=== PATIENT | female | born 1940 | race Caucasian/White ===

== ENCOUNTER 2016-08-10 09:24 | Observation (INO) | payer MEDICARE ==
--- NOTE | ~2016-08-10 | EKG ---
PATIENT: MOISE BLANC UNIT #: [id number] Ventricular Rate: 62 BPM Atrial Rate: 62 BPM P-R Interval: 214 ms QRS Duration: 92 ms Q-T Interval: 384 ms QTC Calculation(Bezet): 389 ms Calculated R Walker: 12 degrees Calculated T Walker: 109 degrees Diagnosis Line: Atrial-paced rhythm with prolonged AV conduction Diagnosis Line: T wave abnormality, consider lateral ischemia Diagnosis Line: Abnormal ECG Diagnosis Line: No previous ECGs available Diagnosis Line: Confirmed by JENNIFER MOON MD ([id number]) on Diagnosis Line: 08/10/2016 11:02:34 PM INTERPRETING MD: RADHA
--- NOTE | ~2016-08-10 | CO ---
Unit #: [id number] #: [id number] Patient: MOISE BLANC [id number] [facility]. [place] [id number] [facility]. [place], [place] [address] [id number] I MR#: [id number] NAME: MOISE BLANC. ROOM: 306 Age: 76 Sex: F Admission Date: 08/10/2016 : 1940 Attending Physician: Derick Jules M.D. Primary Care Physician: Raoul Abbasi M.D. CONSULTATION REPORT HISTORY OF PRESENT ILLNESS This is a 76-year-old white female who is known to Dr. Mccain that has a history of sick sinus syndrome where she underwent permanent pacemaker placement in 2009. She had a cardiac catheterization in 2005 where she was found to have 30% stenosis to the ostial LAD. Lexiscan Cardiolite stress test in 2013 was normal. The patient presents to the emergency room with dizziness and chest pain. She went to bed feeling fine. However, she woke up during the night to go to the bathroom. She got so dizzy that she was unable to walk back to her bed. She complained of substernal chest pressure with heaviness that is nonradiating to the neck, arm or jaw. She called for her son to help her and she was assisted to the bed. Her chest pain resolved. She came into the emergency room for evaluation where initial enzymes were negative. Her electrocardiogram was noted to have Q waves with T wave inversion in the high lateral leads of I and AVL. No acute changes. Upon further questioning, the patient states she is not very active because she sleeps a lot. She is scheduled to have outpatient sleep study done because of her drowsiness. She complains of dyspnea when she goes up and down stairs. No chest pain. She has been told to have thyroid nodules in the past but has failed to follow up. She denies paroxysmal nocturnal dyspnea, orthopnea, syncope or near syncope. PAST MEDICAL HISTORY 1. 2D echocardiogram 06/29/2013 at [facility] with ejection fraction of 55% to 60%. There is mild mitral regurgitation and mild to moderate tricuspid regurgitation. Right ventricular systolic pressure 36 mmHg. 2. Lexiscan Cardiolite stress test 12/12/2013 at [facility] which shows ejection fraction equal to 89%. There is no ischemia or infarct. 3. Cardiac catheterization 10/12/2005 showed left main circumflex and right coronary arteries normal. LAD had 30% ostial stenosis. Ejection fraction of 50% to 55%. 4. Sick sinus syndrome, status post permanent pacemaker in 2009. No details available. 5. Hypotension. 6. Thyroid nodules. 7. Lifelong nonsmoker. PAST SURGICAL HISTORY 1. Cervical laminectomy. 2. Ankle surgery. Unit #: [id number] #: [id number] Patient: MOISE BLANC SOCIAL HISTORY The patient lives at home alone. She has no history of alcohol, tobacco or illicit drug use. FAMILY HISTORY Father in his 60s of complications from open heart surgery. Mother also had open heart surgery. Has a brother who has heart problems and a sister who had a permanent pacemaker. ALLERGIES Sulfa. HOME MEDICATIONS 1. Aspirin 81 mg daily. 2. Losartan 50 mg daily. 3. Hydrochlorothiazide 25 mg daily. 4. Hydroxyzine 25 mg p.r.n. 5. Paxil 20 mg daily. 6. Multivitamin, two tablets daily. 7. Hydrocodone/acetaminophen 5/325 q.6 hours p.r.n. 8. Nitrofurantoin 100 mg daily. REVIEW OF SYSTEMS CONSTITUTIONAL: Negative for fever or chills. Reports no weight gain or weight loss. Has weakness. HEENT: No headache, hearing or visual changes, difficulty with swallowing. Positive for dizziness. CARDIOVASCULAR: Has chest pressure described in the HPI. Denies palpitations. No paroxysmal nocturnal dyspnea or orthopnea. Denies syncope or near syncope. RESPIRATORY: Positive for dyspnea on exertion. Reports no cough or hemoptysis. GASTROINTESTINAL: No abdominal pain, nausea or vomiting. No constipation or melena. EXTREMITIES: Negative for lower extremity edema. PHYSICAL EXAMINATION VITAL SIGNS: Blood pressure 152/65, heart rate 71, temperature 98.3, BMI 31. GENERAL: This is a 76-year-old, elderly white female who is in no acute distress. NEUROLOGICAL: She is awake, alert and oriented without focal weaknesses. NECK: Trachea is midline. No thyromegaly or lymphadenopathy. No jugular venous distention. HEART: S1, S2 heart sounds are normal. No murmurs or rubs or clicks. Regular rate and rhythm. LUNGS: Diminished breath sounds. Poor inspiratory effort. No rales, rhonchi or wheezing. ABDOMEN: Soft, nontender. Bowel sounds are present. No hepatosplenomegaly. EXTREMITIES: Without leg edema. SKIN: Warm and dry. DIAGNOSTIC STUDIES LABORATORY: Glucose 129, BUN 24, creatinine 0.9, sodium 136, potassium 3.8, cholesterol 184, triglycerides 74, LDL 104, HDL 65, TSH 3.66. CK MB 2.1, troponin less than 0.05. White count 6.7, hemoglobin 12.8, Unit #: [id number] #: [id number] Patient: MOISE BLANC hematocrit 39.3, platelet count 215. IMAGING: CT of the head shows no acute findings. CARDIOVASCULAR: Electrocardiogram shows atrially paced rhythm with a rate of 62 beats per minute with Q waves noted in the high lateral leads and AVL with T wave inversion. IMPRESSION 1. Chest pain, rule out myocardial infarction. 2. Dizziness, questionable etiology. 3. Hypertension. 4. Sick sinus syndrome, status post permanent pacemaker. 5. Single vessel coronary artery disease with 30% ostial stenosis to the left anterior descending in 2005 cardiac catheterization. 6. Preserved left ventricular systolic function, ejection fraction 55% to 60%. PLAN 1. REPORT FAXED TO THE OFFICE OF BALDEMAR ALANIZ APRN ON 08/11/2016 FOR COMPLETION. cd Dictated by... Srini YooPTimothyRCarmen for Catrina Parra/laura TD: 08/11/2016 09:33 JOB #: [id number] CONSULTATION REPORT X Baldemar Alaniz APRN X CONSULTATION REPORT
--- NOTE | ~2016-08-10 | CT71 ---
[facility] A Service of [facility] RADIOLOGY TEXT RESULTS PATIENT: MOISE BLANC LOCATION: [facility] : 40 UNIT #: [id number] AGE: [address]: Hola Alvarado MD SEX: F ORDER DR: [id number] [facility] [address] [place], [place] [address] [id number] MR#: [id number] Acc #: [id number] NAME: MOISE BLANC. : 1940 SEX: F STUDY DATE/TIME: 08/10/2016 10:08 UNIT: [facility] ROOM: STUDY DESCRIPTION: CT Head Wo Contrast Attending Physician: Hola Alvarado M.D. Ordering Physician: Hola Alvarado M.D. Primary Care Physician: Raoul Haider MEDICAL IMAGING REPORT This report is preliminary unless electronic signature is present EXAM CT brain without contrast media HISTORY Dizziness since last night. TECHNIQUE Transaxial imaging of the brain was performed without contrast media. There are no prior studies for comparison. This CT exam was performed with one or more of the following radiation dose reduction techniques: automatic exposure control, adjustment of mA and/or kV according to patient size, and iterative reconstruction. FINDINGS Ventricular size and configuration is normal for this patient's age. No intra or extraaxial mass lesions, fluid collections or mass effect are seen. No focal areas of low attenuation or evidence of acute intracranial hemorrhage. There are atherosclerotic calcifications in the vertebral arteries and carotid siphons bilaterally. Bone windows are reviewed. The patient has relatively hypoplastic mastoid air cells. The remainder of the sinuses are clear. No fractures are identified. CONCLUSION 1. 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 2. No acute findings intracranially. Negative noncontrast CT of the brain. Dictated by... Jonatan Aecvedo M.D. THIS IS AN ELECTRONICALLY VERIFIED REPORT Jonatan Acevedo M.D. at 08/10/2016 12:57 PM [facility] A Service of [facility] RADIOLOGY TEXT RESULTS PATIENT: MOISE BLANC LOCATION: [facility] #: [id number] : 40 UNIT #: [id number] AGE: [address]: Hola Alvarado MD SEX: F ORDER DR: DC/yashira TD: 08/10/2016 11:42 JOB #: [id number] MEDICAL IMAGING REPORT COPY
--- NOTE | ~2016-08-10 | DS ---
Unit #: [id number] #: [id number] Patient: MOISE BLANC [id number] [address] [place], [place] [address] [id number] I MR#: [id number] NAME: MOISE BLANC. ROOM: 306 Age: 76 Sex: F Admission Date: 08/10/2016 : 1940 Discharge Date: 08/11/2016 Attending Physician: Derick Jules M.D. Primary Care Physician: Raoul Abbasi M.D. DISCHARGE SUMMARY ADMITTING DIAGNOSES 1. Dizziness. 2. History of sick sinus syndrome, status post pacemaker placement. 3. Hypertension. 4. History of degenerative joint disease. CONSULTANTS Dr. Morris. PROCEDURES PERFORMED None. HISTORY OF PRESENT ILLNESS The patient is a 76-year-old lady with a past medical history of sick sinus syndrome, status post pacemaker, hypertension and history of degenerative joint disease. The patient presented to the emergency room with a chief complaint of dizziness. HOSPITAL COURSE The patient was evaluated by cardiology. Her medications were reviewed and her hydrochlorothiazide was stopped. She did not have any further episodes of dizziness. She was complaining of tiredness and fatigue and her TSH was within normal limits. She is doing clinically better. Cardiology mentioned it is okay to discharge her. I spoke with the patient and she is agreeable to go home. She complains of having a history of thyroid nodules and said she follows up with her primary care physician. I am also giving her a number for the icu specialist, Dr. Persaud, here for followup for the thyroid nodules. PHYSICAL EXAMINATION VITALS: Temperature 97.9, pulse rate 62, respiratory rate 19, blood pressure 139/68. GENERAL: The patient is alert and oriented times three, lying in the bed in no acute distress. HEENT: Normocephalic, atraumatic. No icterus. Pupils equally round and reactive to light and accommodation. Extraocular muscles intact. NECK: Supple. No jugular venous distension. HEART: S1 and S2. Bradycardic. Pacemaker site nontender. CHEST: Bilaterally equal entry. Clear to auscultation. ABDOMEN: Soft and nontender. EXTREMITIES: No edema. Normal pulses. DISCHARGE MEDICATIONS She will continue with all her home medications except for Unit #: [id number] #: [id number] Patient: MOISE BLANC hydrochlorothiazide which is stopped. 1. Paxil 20 mg p.o. daily. 2. Vistaril 25 mg q.8 h. p.r.n. itching. 3. Losartan 50 mg p.o. daily. 4. Wright 3 fish oil capsule 1000 mg p.o. daily. 5. Multivitamin 1 tablet p.o. daily. 6. Aspirin 81 mg daily. 7. Hydrocodone/Tylenol 1 tablet q.6 h. p.r.n. pain. Kindly note we are not giving any prescription. She will be getting them from her primary care physician. 8. Nitrofurantoin 100 mg p.o. daily. FOLLOWUP She is instructed to follow up with her primary care physician in one to two weeks. All the discharge instructions were explained in detail to the patient. Time in her discharge 28 minutes. Dictated by... Catrina Lloyd TD: 08/12/2016 11:49 JOB #: [id number] DISCHARGE SUMMARY X X DISCHARGE SUMMARY
--- NOTE | ~2016-08-10 | HP ---
Unit #: [id number] #: [id number] Patient: MOISE BLANC [id number] [address] [address] [id number] E MR#: [id number] NAME: MOISE BLANC ROOM: Age: 76 Sex: F Admission Date: 08/10/2016 : 1940 Attending Physician: Hola Alvarado M.D. Primary Care Physician: Raoul Abbasi M.D. HISTORY AND PHYSICAL CHIEF COMPLAINT Dizziness. HISTORY OF PRESENT ILLNESS The patient is a 76-year-old female with history of sick sinus syndrome status post pacemaker placement, hypertension and history of degenerative joint disease, brought to the emergency room complaining of dizziness. The patient described the dizziness as the room spinning and is scared of getting up and walking. The patient stated the patient went to the bathroom and was not able to come back to the bed because of the dizziness. The patient also complains of chest pain associated with the dizziness and the chest pain lasted around 10 to 20 minutes. The patient denies any nausea, vomiting or palpitations. The patient denies any head trauma or recent fall. The patient follows with Cardiology outside and was scheduled to have echocardiogram today, however, presented to the emergency room with worsening dizziness. The patient denies any short of breath, headache, diarrhea or weakness. PAST MEDICAL HISTORY History of sick sinus syndrome, hypertension, history of degenerative joint disease. PAST SURGICAL HISTORY History of cervical laminectomy, left ankle surgery. SOCIAL HISTORY The patient denies smoking, drinking or illicit drug abuse. The patient is and lives with her . FAMILY HISTORY Positive for coronary artery disease. ALLERGIES Sulfa. HOME MEDICATION 1. Multivitamins. 2. Hydrocodone. 3. Nitrofurantoin. 4. Aspirin. 5. Losartan. 6. Hydrocholorothiazide. 7. Hydroxyzine. 8. Paroxetine. Unit #: [id number] #: [id number] Patient: MOISE BALNC REVIEW OF SYMPTOMS A 14-point review of systems was performed and only pertinent positive findings as described above. Remaining are negative. PHYSICAL EXAMINATION GENERAL APPEARANCE: The patient is lying on her bed, not in acute distress. VITAL SIGNS: Temperature 98.3. Pulse 62. Respiration 17. Blood pressure 119/64. Sating 97% on room air. HEENT: Head: Atraumatic, normocephalic. Pupils equal, round and reactive to light and accommodation. Extraocular movements are intact. Dry mucous membranes. NECK: Supple. No JVD. LUNGS: Decreased air entry at the bases. HEART: Regular rate and rhythm. ABDOMEN: Soft. Positive bowel sounds. EXTREMITIES: No cyanosis. No clubbing. NEUROLOGIC: No gross focal motor deficit. DIAGNOSTIC STUDIES LABORATORY: Glucose 129, BUN 34, creatinine 0.9, sodium 136, potassium 3.8, chloride 100, bicarb 26, calcium 9.3, total protein 6.8, total bilirubin 0.7, AST 27, ALT 19, alkaline phosphatase 110. Troponin is less than 0.05. WBC 6.7, hemoglobin 12.8, hematocrit 39.3, platelets 215. IMAGING: CT of the head shows atherosclerotic disease in the vertebral arteries and carotids. No acute findings intracranially. Negative noncontrast CT of the brain. CARDIOVASCULAR: An EKG shows paced rhythm at a rate of 62 beats per minute. ASSESSMENT 1. Chest pain. 2. Dizziness. 3. Hypertension. PLAN Admit the patient to observation with telemetry. Continue with IV fluids and serial troponins to rule out ischemia. Check the echocardiogram and Cardiology evaluation for the dizziness and we will hold the hydrochlorothiazide and the narcotics and repeat the labs again in the morning. Further recommendations will follow as more lab results are available. Dictated by Catrina Floyd TD: 08/10/2016 14:00 JOB #: [id number] Unit #: [id number] #: [id number] Patient: MOISE BLANC HISTORY AND PHYSICAL X X HISTORY AND PHYSICAL
[2016-08-10 09:00] LABS: BASOPHIL# 0.1 X10e3 (0-0.3); DIFF IND NO; EOSINOPHIL# 0.2 X10e3 (0-0.7); EOSINOPHIL% 2.7 % (0.0-7.0); HEMATOCRIT 39.3 % (35.0-45.0); HEMOGLOBIN 12.8 gm/dL (12.0-16.0); LYMPHOCYTE# 1.9 X10e3 (1.0-3.5); LYMPHOCYTE% 28.5 % (17.0-45.0); MEAN CELL VOLUME 87.7 FL (83-96); MEAN CORPUSCULAR HEMOGLOBIN 28.5 PG (28-34); MEAN CORPUSCULAR HGB CONC 32.5 g/dL (30-36); MONOCYTE# 0.6 X10e3 (0-1.0); NEUTROPHIL% 58.8 % (40-75); PLATELET COUNT 215 X10e3 (140-420); RED BLOOD COUNT 4.48 X10e (3.90-5.30); WHITE BLOOD COUNT 6.7 X10e3 (4.0-10.5)
[2016-08-10 09:13] LABS: POC - CKMB 2.1 ng/mL (0.0-7.9); POC - TROPONIN <0.05 ng/mL (<=0.05)
[~2016-08-10 09:24] MED LIST: ACETAMINOPHEN PO; ASPIRIN PO; CALCIUM; CERTAGEN PO; DARVOCET-N 1001 TAB; DIOVAN; GLUCOSAMINE; IBUPROFEN PO; MEDROL PO; TYLOX 5/500 CAP1 CAP PO
[2016-08-10 09:36] LABS: ALBUMIN SERUM 3.6 g/dL (3.5-5.0); ALKALINE PHOSPHATASE 110 U/L (32-92); ALT (SGPT) 19 U/L (10-40); AST (SGOT) 27 U/L (10-42); BILIRUBIN, DIRECT 0.1 mg/dL (0.0-0.2); BILIRUBIN,INDIRECT 0.6 mg/dL (0.0-0.9); BILIRUBIN,TOTAL 0.7 mg/dL (0.2-2.0); BLOOD UREA NITROGEN 24 mg/dL (9-23); BUN/CREATININE RATIO 26.66; CALCIUM SERUM 9.3 mg/dL (8.4-10.2); CARBON DIOXIDE 26 mmol/L (22-31); CHLORIDE 100 mmol/L (100-111); CREATININE SERUM 0.9 mg/dL (0.6-1.4); GLOM FILT RATE Estimated ABOVE60 mL/min (>60); GLUCOSE FASTING 129 mg/dL (70-110); POTASSIUM 3.8 mmol/L (3.5-5.1); PROTEIN TOTAL SERUM 6.8 g/dL (6.0-8.3); SODIUM 136 mmol/L (135-145)
[2016-08-10] MEDS ORDERED: HYDROCHLOROTHIA25 MG PO (11:12)
[2016-08-10] MEDS ORDERED: LOSARTAN POTASS50 MG PO (11:12)
[2016-08-10] MEDS ORDERED: HYDROXYZINE HCL25 M1 PO (11:13)
[2016-08-10] MEDS ORDERED: PAROXETINE HCL20 M1 PO (11:13)
[2016-08-10] MEDS ORDERED: MULTIVITAMINS1 EAC2 PO (11:15)
[2016-08-10] MEDS ORDERED: HYDROCODON-ACE1 EAC7 PO (11:16)
[2016-08-10] MEDS ORDERED: NITROFURANTOIN100 M3 PO (11:16)
[2016-08-10 13:27] LABS: CHOLESTEROL 184 mg/dL (0-200); HDL CHOLESTEROL 65 mg/dL (35-95); LDL CHOLESTEROL 104 mg/dL (-130); LDL/HDL RATIO 2 RATIO (0-4); TRIGLYCERIDES 74 mg/dL (10-160)
[2016-08-10 13:58] LABS: URINE SOURCE CLEAN CATCH
[2016-08-10 14:07] LABS: URINE APPEARANCE CLEAR; URINE BILIRUBIN NEG (NEG); URINE BLOOD NEG (NEG); URINE COLOR YELLOW; URINE GLUCOSE NEG (NEG); URINE KETONE NEG (NEG); URINE LEUKOCYTE ESTERASE NEG (NEG); URINE NITRATE NEG (NEG); URINE PH 6.5 (5-8); URINE PROTEIN NEG (NEG); URINE SPECIFIC GRAVITY 1.012 (1.003-1.035); URINE UROBILINOGEN 0.2 MG/DL (NEG)
[2016-08-10 14:17] LABS: CULTURE INDICATED? NO
[2016-08-10 15:23] LABS: CK TOTAL 46 IU/L (26-140)
[2016-08-10 20:45] LABS: CK TOTAL 48 IU/L (26-140)
[2016-08-11 05:06] LABS: BASOPHIL# 0.1 X10e3 (0-0.3); BASOPHIL% 0.8 % (0-2.5); EOSINOPHIL# 0.2 X10e3 (0-0.7); EOSINOPHIL% 3.5 % (0.0-7.0); HEMATOCRIT 37.8 % (35.0-45.0); HEMOGLOBIN 12.3 gm/dL (12.0-16.0); LYMPHOCYTE# 2.6 X10e3 (1.0-3.5); LYMPHOCYTE% 36.8 % (17.0-45.0); MEAN CELL VOLUME 88.4 FL (83-96); MEAN CORPUSCULAR HEMOGLOBIN 28.8 PG (28-34); MEAN CORPUSCULAR HGB CONC 32.6 g/dL (30-36); MEAN PLATELET VOLUME 9.4 FL (6.5-11.5); MONOCYTE# 0.8 X10e3 (0-1.0); MONOCYTE% 11.6 % (3.0-12.0); NEUTROPHIL# 3.3 X10e3 (1.5-7.1); NEUTROPHIL% 47.3 % (40-75); PLATELET COUNT 207 X10e3 (140-420); RED BLOOD COUNT 4.28 X10e (3.90-5.30); RED CELL DISTRIBUTION WIDTH 14.1 % (11.0-15.5)
[2016-08-11 05:07] LABS: DIFF IND NO
[2016-08-11 06:06] LABS: BLOOD UREA NITROGEN 25 mg/dL (9-23); BUN/CREATININE RATIO 27.77; CALCIUM SERUM 9.1 mg/dL (8.4-10.2); CARBON DIOXIDE 26 mmol/L (22-31); CHLORIDE 104 mmol/L (100-111); CREATININE SERUM 0.9 mg/dL (0.6-1.4); GLOM FILT RATE Estimated ABOVE60 mL/min (>60); GLUCOSE FASTING 109 mg/dL (70-110); POTASSIUM 4.5 mmol/L (3.5-5.1); SODIUM 138 mmol/L (135-145)
== END 2016-08-11 17:10 | disposition home or self-care (01) ==
LOC: CED 09:24 → CEDOF 11:25 → C3A PCU 19:32
PROVIDERS: Emergency Medicine; Internal Medicine; Nurse Practitioner
DX: R42 Dizziness and giddiness (principal); R07.9 Chest pain, unspecified; I25.10 Atherosclerotic heart disease of native coronary artery without angina pectoris; Z95.0 Presence of cardiac pacemaker; I10 Essential (primary) hypertension; M19.90 Unspecified osteoarthritis, unspecified site; Z79.82 Long term (current) use of aspirin; Z82.49 Family history of ischemic heart disease and other diseases of the circulatory system; Z88.2 Allergy status to sulfonamides
CPT/HCPCS: 36415; 70450; 80048; 80061; 80076; 81003; 82550; 82553; 84443; 84484; 85025; 93005; 93306; 93660; 96360; 96372; 99285; G0378; J1650

== ENCOUNTER → 2016-09-23 | Outpatient (CLI) | payer MEDICARE ==
[~2016-09-23] MED LIST changes: +HYDROCHLOROTHIA25 MG PO; +HYDROCODON-ACE1 EAC7 PO; +HYDROXYZINE HCL25 M1 PO; +LOSARTAN POTASS50 MG PO; +MULTIVITAMINS1 EAC2 PO; +NITROFURANTOIN100 M3 PO; +PAROXETINE HCL20 M1 PO
--- NOTE | ~2016-09-23 | US10 ---
[id number] [facility]. [facility] [address] [place], [place] [address] [id number] MR#: [id number] Acc #: [id number] NAME: MOISE BLANC : 1940 SEX: F STUDY DATE/TIME: 09/23/2016 9:08 UNIT: [facility] ROOM: STUDY DESCRIPTION: US Aorta Complete Attending Physician: Raoul Abbasi M.D. Referring Physician: Raoul Abbasi M.D. Ordering Physician: Raoul Abbasi M.D. Primary Care Physician: Raoul Abbasi M.D. MEDICAL IMAGING REPORT This report is preliminary unless electronic signature is present EXAM Ultrasound of the abdominal aorta with color flow Doppler, 09/23/2016. HISTORY Hypertension and abdominal pain for 1 week. Family history of abdominal aortic aneurysm in brother and sisters. Screening for abdominal aortic aneurysm. FINDINGS Kunz-scale images of the abdominal aorta were obtained as well as Doppler waveform spectral analysis and color flow Doppler imaging. The proximal, mid and distal aspects of the abdominal aorta measured 1.8 cm, 2.1 cm, and 1.3 cm respectively with no evidence of abdominal aortic aneurysm. The right and left common iliac arteries measured 1.3 cm and 1.2 cm, respectively. Color-flow Doppler images show normal blood flow throughout the abdominal aorta. IMPRESSION Negative ultrasound of the abdominal aorta with color flow Doppler images. There is no evidence of abdominal aortic aneurysm. Dictated by... Valdemar Mayes M.D. THIS IS AN ELECTRONICALLY VERIFIED REPORT Valdemar Mayes M.D. at 09/24/2016 8:11 AM LOR/julio cesar TD: 09/23/2016 11:44 JOB #: [id number] MEDICAL IMAGING REPORT Page 1 of 1 COPY
== END | disposition home or self-care (01) ==
LOC: CWCC 08:52
DX: Z13.6 Encounter for screening for cardiovascular disorders (principal); I10 Essential (primary) hypertension
CPT/HCPCS: 76770